=== PATIENT | female | born 1980 | race Native Hawaiian/Other Pacific Islander ===

== ENCOUNTER 2016-09-19 19:26 | Emergency (ER) | payer BC ==
[~2016-09-19] VITALS: Ht 170.2 cm; Wt 81.6 kg
[2016-09-19] MEDS ORDERED: HYDR10TA47 PO (19:36)
== END 2016-09-19 20:08 | disposition home or self-care (01) ==
LOC: ED 19:26
DX: K02.9 Dental caries, unspecified (principal); K04.7 Periapical abscess without sinus; R68.84 Jaw pain
CPT/HCPCS: 96372; 99283; J0696

== ENCOUNTER 2020-07-22 22:58 | Emergency (ER) | payer BC ==
[~2020-07-22] VITALS: Ht 170.2 cm; Wt 91.2 kg
[~2020-07-22 22:58] MED LIST: HYDR10TA47 PO
[2020-07-22 23:28] LABS: PLATELET COUNT 253 K/uL (152-353)
[2020-07-22 23:57] LABS: POTASSIUM 3.6 mmol/L (3.6-5.2)
[2020-07-23 00:30] VITALS: BP 138/88; TEMP 98.4
== END 2020-07-23 00:30 | disposition home or self-care (01) ==
LOC: ED 22:58
PROVIDERS: Emergency Medicine Emergency Medical Services
DX: K80.50 Calculus of bile duct without cholangitis or cholecystitis without obstruction (principal)
CPT/HCPCS: 36415; 80053; 81000; 83690; 85027; 96360; 96375; 99284; J1885